=== PATIENT | female | born 1980 | race Caucasian/White ===

== ENCOUNTER 2016-12-31 17:09 | Emergency (ER) | payer OTHER ==
[~2016-12-31] VITALS: Ht 152.4 cm; Wt 75.0 kg
[2016-12-31 17:19] VITALS: TEMP 37; Ht 152.4 cm; Wt 75.0 kg
[2016-12-31] MEDS ORDERED: MoRPHine SULFATE 4 MG/ML 1 ML CARP\\VIAL IV STA (17:46)
[2016-12-31] MEDS ORDERED: METHYLPREDNISOLONE 125 MG VIAL IV STA (17:46)
[2016-12-31] MEDS ORDERED: SODIUM CHLORIDE 0.9% 1000ML 1,000 ML IV STA (17:46)
[2016-12-31] MEDS ORDERED: KETOROLAC TROMETHAMINE 30 MG/ML VIAL IV STA (17:46)
[2016-12-31] MEDS ORDERED: ASPI-391 PO (18:11)
[2016-12-31] MEDS ORDERED: ACET-1256 PO (18:11)
[2016-12-31] MEDS ORDERED: PRVHFAIN INH (18:11)
[2016-12-31 18:47] VITALS: O2SAT 100
--- NOTE | 2016-12-31 19:27 | EMERGENCY ROOM VISIT NOTE ---
History First contact with patient: 17:39 Chief Complaint: PAIN (GENERALIZED) Stated Complaint: CHEST PAIN,NECK PAIN,SHOULDER PAIN, CANT MOVE History of Present Illness The patient is a 36 year old female who presents to the Emergency Department by private vehicle for evaluation of her neck pain. The patient reports that she' s had pain in her neck for the past month. She had followed with her chiropractor prior to seeking evaluation by her primary care provider. She had x-rays performed which been unremarkable. She had an MRI ordered today at the [facility], but was unable to make the appointment secondary to increasing pain. She describes pain in her neck as well as to her LEFT shoulder. She denies any numbness or tingling into the distal cavities. The patient rates her current discomfort as a 10/10. She is tried vczp-gas-sgurgyk medications without relief of symptoms. She denies any change in symptoms, only increasing intensity of pain. She denies any fevers, chills, headaches, dizziness, lightheadedness, chest pain, palpitations, nausea, or vomiting. Review of Systems A complete 10-point Review of Systems was discussed with the patient, with pertinent positives and negatives listed in the History of Present Illness. All remaining Review of Systems questions can be considered negative unless otherwise specified. Social History Smoking Status: Current Every Day Smoker Smokeless Tobacco Use: No Drug Use: none Housing Status: lives with family Current/Historical Medications Scheduled Prednisone (Prednisone), 50 MG PO DAILY Scheduled PRN Acetaminophen (Tylenol), 1,000 MG PO Q6H PRN for Pain Albuterol (Ventolin Hfa), 2 PUFFS INH Q6H PRN for SOB/Wheezing Yohjjjf-Mcvkqotkdjhgo-Ofdadudo (Excedrin Extra Strength), 1 TAB PO UD PRN for Pain Hydrocodone/Acetaminophen 5MG/325MG ([place] 5MG/325MG), 1-2 TABLET PO Q4H PRN for Pain Allergies Coded Allergies: Oxycodone (Verified Allergy, Intermediate, Swelling of throat, 12/31/16) Pineapple (Verified Allergy, Intermediate, Throat swelling, 12/31/16) Ondansetron (Verified Allergy, Mild, Rash, 12/31/16) Physical Exam Vital Signs Date Time Temp Pulse Resp B/P Pulse Ox O2 Delivery O2 Flow Rate FiO2 12/31/16 22:38 80 20 135/89 12/31/16 18:47 92 16 124/93 100 Room Air 12/31/16 17:19 37.0 88 20 105/72 98 Room Air Pain Rating (0-10): 10 Physical Exam VITAL SIGNS - Vital signs and nursing notes were reviewed. GENERAL - 36-year-old female appearing her stated age who is in no acute distress. Communicates well with provider and answers questions appropriately. HEAD - Normocephalic, Atraumatic. No Diaz's Sign or Raccoon's Eyes. No depressed skull fractures palpable. EYES - PERRL with EOMI bilaterally. Sclera anicteric. Palpebral conjunctiva pink and moist with no injection noted. EARS - No deformities of external structures noted on gross examination bilaterally. No pain elicited with palpation of the tragus bilaterally. External auditory canals without discharge or otorrhea. Tympanic membranes pearly nath without retraction or bulging. NOSE - Midline and without cyanosis. No epistaxis or purulent drainage noted. Septum midline without deviation or septal hematoma noted. MOUTH/OROPHARYNX - Without perioral cyanosis. Buccal mucosa pink and moist and without leukoplakia. Tongue midline with equal elevation of palate bilaterally. No tonsillar hypertrophy, erythema, or exudates noted. NECK - Neck with limited ROM secondary to patient discomfort. No cervical spinous process tenderness to palpation. Moderate subjective paraspinal muscle tenderness to palpation bilaterally. No lymphadenopathy noted. Moderate pain through range of motion appreciated. Mild pain elicited with axial load applied to the head. EXTREMITIES - +4/5 strength appreciated bilaterally of the upper extremities. +3 /5 radial pulses palpated throughout. FROM with no tremors, fasciculations, or clonus noted on PROM throughout. NEUROLOGIC - Cranial nerves II through XII grossly intact. Sensory intact to light and sharp touch throughout. Patient able to perform rapid alternating movements appropriately. PSYCH - A&Ox3 and cooperates fully with examiner. Pt is very pleasant and interacts well with examiner. Medical Decision & Procedures ER Provider Diagnostic Interpretation: Radiological imaging and reports were reviewed by myself. Radiologist's Interpretation as follows: MRI OF THE CERVICAL SPINE COMBO CLINICAL HISTORY: Neck pain and cervical radiculopathy. COMPARISON STUDY: No priors. TECHNIQUE: MRI of the cervical spine is performed utilizing various T1 and T2-weighted sequences in the axial and sagittal planes. Contrast-enhanced sequences are acquired following the IV administration of 7.5 cc of Gadavist. The examination is severely degraded by motion artifact. FINDINGS: Cervical spine: Vertebral body height and alignment are maintained throughout the cervical spine. There is straightening of the cervical lordosis. Normal marrow signal intensity is preserved. The atlantodental articulation is maintained as imaged. The spinous processes appear intact. Degenerative endplate edema is seen at C6-C7. Intervertebral discs: Mild degenerative disc desiccation is seen throughout the cervical spine. Mild loss of height is noted at C6-C7. Spinal cord: The cervical spinal cord is normal in morphology and signal intensity. No abnormal enhancement is identified on the postcontrast series. C2-C3: Unremarkable. C3-C4: Unremarkable. C4-C5: A posterior disc osteophyte complex effaces the ventral subarachnoid space. Predominantly facet arthropathy causes minimal left-sided neural foraminal narrowing. C5-C6: A posterior disc osteophyte complex effaces the ventral cord. Uncovertebral and facet arthropathy cause moderate to severe left and mild to moderate right neural foraminal stenosis. C6-C7: A posterior disc osteophyte complex effaces the ventral cord. Uncovertebral and facet arthropathy cause moderate bilateral neural foraminal stenosis. C7-T1: Unremarkable. Soft tissues: The prevertebral and paraspinous soft tissues are within normal limits. Brain parenchyma: Partially imaged brain parenchyma at the skull base is within normal limits. IMPRESSION: 1. Significantly motion degraded examination. 2. Degenerative disc disease with significant endplate edema identified at C6-C7. 3. Multilevel cervical spondylosis as above. Posterior disc osteophyte complexes at C5-C6 and C6-C7 efface the ventral cord. See above discussion for detailed level by level analysis. Laboratory Results 12/31/16 19:59 Red Blood Count 4.28, Mean Corpuscular Volume 94.6, Mean Corpuscular Hemoglobin 32.2, Mean Corpuscular Hemoglobin Concent 34.1, Mean Platelet Volume 9.4, Neutrophils (%) (Auto) 39.2, Lymphocytes (%) (Auto) 45.6, Monocytes (%) (Auto) 10.7, Eosinophils (%) (Auto) 4.1, Basophils (%) (Auto) 0.3, Neutrophils # (Auto ) 3.53, Lymphocytes # (Auto) 4.11, Monocytes # (Auto) 0.96, Eosinophils # (Auto ) 0.37, Basophils # (Auto) 0.03 12/31/16 19:59 Test 12/31/16 19:59 White Blood Count 9.01 K/uL (4.8-10.8) Red Blood Count 4.28 M/uL (4.2-5.4) Hemoglobin 13.8 g/dL (12.0-16.0) Hematocrit 40.5 % (37-47) Mean Corpuscular Volume 94.6 fL (80-100) Mean Corpuscular Hemoglobin 32.2 pg (25-34) Mean Corpuscular Hemoglobin Concent 34.1 g/dl (32-36) Platelet Count 313 K/uL (130-400) Mean Platelet Volume 9.4 fL (7.4-10.4) Neutrophils (%) (Auto) 39.2 % Lymphocytes (%) (Auto) 45.6 % Monocytes (%) (Auto) 10.7 % Eosinophils (%) (Auto) 4.1 % Basophils (%) (Auto) 0.3 % Neutrophils # (Auto) 3.53 K/uL (1.4-6.5) Lymphocytes # (Auto) 4.11 K/uL (1.2-3.4) Monocytes # (Auto) 0.96 K/uL (0.11-0.59) Eosinophils # (Auto) 0.37 K/uL (0-0.5) Basophils # (Auto) 0.03 K/uL (0-0.2) RDW Standard Deviation 43.9 fL (36.4-46.3) RDW Coefficient of Variation 12.8 % (11.5-14.5) Immature Granulocyte % (Auto) 0.1 % Immature Granulocyte # (Auto) 0.01 K/uL (0.00-0.02) Anion Gap 8.0 mmol/L (3-11) Est Creatinine Clear Calc Drug Dose 89.1 ml/min Estimated GFR () 111.6 Estimated GFR (Non- 96.3 BUN/Creatinine Ratio 25.9 (10-20) Calcium Level 8.8 mg/dl (8.5-10.1) Total Bilirubin 0.2 mg/dl (0.2-1) Aspartate Amino Transf (AST/SGOT) 25 U/L (15-37) Alanine Aminotransferase (ALT/SGPT) 35 U/L (12-78) Alkaline Phosphatase 70 U/L (45-117) Total Protein 7.2 gm/dl (6.4-8.2) Albumin 3.8 gm/dl (3.4-5.0) Globulin 3.4 gm/dl (2.5-4.0) Albumin/Globulin Ratio 1.1 (0.9-2) Lyme Disease IgG Antibody NEG (NEG) Lyme Disease IgM Antibody NEG (NEG) Medications Administered Medications (Trade) Dose Ordered Sig/Saurav Route Start Time Stop Time Status Last Admin Dose Admin Sodium Chloride (Nss 1000ml) 1,000 ml @ 250 mls/hr Q4H STAT IV 12/31/16 17:46 12/31/16 21:45 DC 12/31/16 20:12 250 MLS/HR Ketorolac Tromethamine (Toradol Inj) 30 mg NOW STAT IV 12/31/16 17:46 12/31/16 17:48 DC 12/31/16 20:13 30 MG Morphine Sulfate (MoRPHine SULFATE INJ) 4 mg STK-MED ONCE .ROUTE 12/31/16 20:06 12/31/16 20:07 DC 12/31/16 20:11 4 MG Ketorolac Tromethamine (Toradol Inj) 30 mg STK-MED ONCE .ROUTE 12/31/16 20:06 12/31/16 20:07 DC 12/31/16 20:10 30 MG Methylprednisolone Sodium Succinate (Solu-Medrol IV) 125 mg STK-MED ONCE .ROUTE 12/31/16 20:06 12/31/16 20:07 DC 12/31/16 20:10 125 MG Acetaminophen/ Hydrocodone Bitart ([place] 5/325mg Home Pack) 1 homepack UD ONCE PO 12/31/16 23:00 12/31/16 23:01 DC 12/31/16 23:28 1 HOMEPACK Prednisone (PredniSONE TAB) 60 mg NOW STAT PO 12/31/16 22:57 12/31/16 22:59 DC 12/31/16 23:28 60 MG ED Course Patient was seen and evaluated by myself. Labs were drawn, saline lock in place. Patient was hydrated with normal saline at a rate of 250 mL prior. She received 30 mg Toradol, 4 mg morphine, and 125 mg Solu-Medrol intravenously. MRI of the cervical spine is ordered. The patient's stay was delayed by difficulty with IV access. Laboratory results demonstrate no acute leukocytosis , worrisome anemia, or bandemia. The patient has no significant electrolyte abnormalities. Lyme titers were negative. Patient was reevaluated and resting comfortably and in minimal discomfort. MRI results as above. I did discuss the case with Dr. Ayers of [facility] who agrees with IV steroids as well as outpatient steroids and pain medication. He can see the patient on in office. Patient was educated on this. The patient feels much better. The patient was educated on worrisome symptoms for return visit to the emergency department. Patient discharged home in good condition. Medical Decision Given the patient's presentation and stated complaints, I did elect to perform the above-mentioned workup. The patient presents the emergency department with progressively worsening cervical pain for the past month. She has subjective pain to her shoulders. She is in obvious discomfort on evaluation. She responded well to pain medications in the emergency department. MRI was obtained that was initially ordered an outpatient setting. MRI concerning for degenerative changes. After conversation with orthopedic spine, it was felt best that the patient be placed on steroids and have the patient follow closely with surgery in office. The patient was educated on worrisome symptoms for return visit to the emergency department. Patient discharged home in good condition. In the evaluation and treatment of this patient, the following differential diagnoses were considered: Musculoskeletal Strain, Discitis, Cervical Spine Fracture, Cervical Spine Dislocation, Cervical Spine Subluxation, Cervical Spondylosis, Fibromyalgia, Osteoarthritis, Polymyalgia Rheumatica, Psychogenic Pain Disorder, Tumor of Soft Tissue or Spine. Impression Primary Impression: Neck pain Additional Impression: DDD (degenerative disc disease), cervical Departure Information Dispostion Home / Self-Care Condition GOOD Prescriptions Hydrocodone/Acetaminophen 5MG/325MG ([place] 5MG/325MG) Tab 1-2 TABLET PO Q4H Y for Pain, #20 TAB For Initial Treatment Prov: Irving Reyna PA-C 12/31/16 Prednisone (Prednisone) 50 Mg Tab 50 MG PO DAILY for 4 Days, #4 TAB Prov: Irving Reyna PA-C 12/31/16 Referrals Lurdes Chopra D.O. (PCP) Steve Ayers M.D. Patient Instructions My [facility] Additional Instructions You have been treated in the Emergency Department for Neck Pain. You have received pain medicine in the emergency department which impairs your ability to operate a vehicle. It is illegal for you to drive after receiving these medicines. You have been prescribed [place] one to 2 tabs every 4-6 hours as needed for pain. This is a narcotic medication. You cannot drive or consume alcohol while on this medicine. This medicine should only be used for pain that cannot be controlled with ojja-udf-qoegsch pain medicines. You have been prescribed Prednisone 50 mg to be taken orally once a day for the next 4 days. This is an anti-inflammatory medicine to be used to help minimize your symptoms. You should take the COMPLETE course of the medication. For pain control, you can use the following suwr-jkz-ffnzvnh medicines (if >12 yo): - Regular strength (325mg/tab) Tylenol (acetaminophen) 2 tabs every 4-6 hours as needed. Do not exceed 12 tablets in a 24 hour period. Avoid taking more than 4 grams (4000 mg) of Tylenol per day. This includes any other sources of acetaminophen you may take on a regular basis. - Regular strength (200 mg/tab) Advil (ibuprofen) 1-2 tabs every 4-6 hours as needed. Do not exceed a dose of 3200 mg per day. If this is an acute injury, ice can be applied to the area of pain for the first 3 days to help decrease pain and inflammation. After the first 3 days, a heating pad can be used over the area for continued soothing relief. Please contact Dr. Ayers's office tomorrow to setup and appointment on as discussed. Return to the Emergency Department if your current symptoms worsen despite treatment course outlined above, or if you develop any of the following symptoms : intractable pain despite aforementioned treatment course, facial droop, slurred speech, unilateral weakness, or worsening of her current symptoms. Problem Qualifiers
[2016-12-31] MEDS ORDERED: METHYLPREDNISOLONE 125 MG VIAL ONE (20:06)
[2016-12-31] MEDS ORDERED: KETOROLAC TROMETHAMINE 30 MG/ML VIAL ONE (20:06)
[2016-12-31] MEDS ORDERED: MoRPHine SULFATE 4 MG/ML 1 ML CARP\\VIAL ONE (20:06)
[2016-12-31 20:11] LABS: BASO % 0.3 %; BASO ABS # 0.03 K/uL (0-0.2); COMPLETE YES; EOS % 4.1 %; HEMATOCRIT 40.5 % (37-47); IG% 0.1 %; LYMPH % 45.6 %; LYMPH ABS # 4.11 K/uL (1.2-3.4); MEAN CELL VOLUME 94.6 fL (80-100); MEAN CORPUSCULAR HEMOGLOBIN 32.2 pg (25-34); MEAN CORPUSCULAR HGB CONC 34.1 g/dl (32-36); MEAN PLATELET VOLUME 9.4 fL (7.4-10.4); MONO % 10.7 %; NEUT % 39.2 %; PLATELET COUNT 313 K/uL (130-400); RED BLOOD COUNT 4.28 M/uL (4.2-5.4); WHITE BLOOD COUNT 9.01 K/uL (4.8-10.8)
[2016-12-31 20:36] LABS: BUN/CREATININE RATIO 25.9 (10-20); CALCIUM 8.8 mg/dl (8.5-10.1); CREATININE 0.79 mg/dl (0.60-1.20); POTASSIUM 3.8 mmol/L (3.5-5.1)
[2016-12-31 20:39] LABS: ALB/GLOB RATIO 1.1 (0.9-2)
[2016-12-31 21:19] LABS: LYME DISEASE AB IGG NEG (NEG); LYME DISEASE AB IGM NEG (NEG)
[2016-12-31 22:38] VITALS: BP 135/89; PULSE 80
--- NOTE | 2016-12-31 22:43 | DIAGNOSTIC IMAGING REPORT ---
MRI OF THE CERVICAL SPINE COMBO CLINICAL HISTORY: Neck pain and cervical radiculopathy. COMPARISON STUDY: No priors. TECHNIQUE: MRI of the cervical spine is performed utilizing various T1 and T2-weighted sequences in the axial and sagittal planes. Contrast-enhanced sequences are acquired following the IV administration of 7.5 cc of Gadavist. The examination is severely degraded by motion artifact. FINDINGS: Cervical spine: Vertebral body height and alignment are maintained throughout the cervical spine. There is straightening of the cervical lordosis. Normal marrow signal intensity is preserved. The atlantodental articulation is maintained as imaged. The spinous processes appear intact. Degenerative endplate edema is seen at C6-C7. Intervertebral discs: Mild degenerative disc desiccation is seen throughout the cervical spine. Mild loss of height is noted at C6-C7. Spinal cord: The cervical spinal cord is normal in morphology and signal intensity. No abnormal enhancement is identified on the postcontrast series. C2-C3: Unremarkable. C3-C4: Unremarkable. C4-C5: A posterior disc osteophyte complex effaces the ventral subarachnoid space. Predominantly facet arthropathy causes minimal left-sided neural foraminal narrowing. C5-C6: A posterior disc osteophyte complex effaces the ventral cord. Uncovertebral and facet arthropathy cause moderate to severe left and mild to moderate right neural foraminal stenosis. C6-C7: A posterior disc osteophyte complex effaces the ventral cord. Uncovertebral and facet arthropathy cause moderate bilateral neural foraminal stenosis. C7-T1: Unremarkable. Soft tissues: The prevertebral and paraspinous soft tissues are within normal limits. Brain parenchyma: Partially imaged brain parenchyma at the skull base is within normal limits. IMPRESSION: 1. Significantly motion degraded examination. 2. Degenerative disc disease with significant endplate edema identified at C6-C7. 3. Multilevel cervical spondylosis as above. Posterior disc osteophyte complexes at C5-C6 and C6-C7 efface the ventral cord. See above discussion for detailed level by level analysis. Dictated: 12/31/2016 10:34 PM Transcribed: 12/31/2016 10:42 PM [email or web address] Electronically signed by: Jay Jay Singer M.D. 12/31/2016 10:44 PM Dictated Date/Time: 12/31/2016 10:34 PM
[2016-12-31] MEDS ORDERED: PRED50TA PO (23:00)
[2016-12-31] MEDS ORDERED: HYDR-5688 PO (23:00)
[2016-12-31] MEDS ORDERED: NORCO 5/325MG HOME PACK PO ONE (23:00)
== END 2016-12-31 23:32 | disposition home or self-care (01) ==
LOC: C.EDB 17:12 → C.EDC 23:32
DX: M54.2 Cervicalgia (principal); M50.30 Other cervical disc degeneration, unspecified cervical region; M25.512 Pain in left shoulder; F17.200 Nicotine dependence, unspecified, uncomplicated